=== PATIENT | female | born 1955 | race Caucasian/White ===

== ENCOUNTER 2022-04-26 09:09 | Day surgery (SDC) | payer OTHER, MEDICARE ==
[2022-04-20 15:12] LABS: SARS-CoV-2 Antigen Rapid Res Negative (Negative)
[2022-04-26] MEDS ORDERED: Ringers Lactate 1,000 ML IV ONE (09:31)
[2022-04-26] MEDS ORDERED: propofoL 200 MG/20 ML VIAL IV ONE (11:16)
[2022-04-26] MEDS ORDERED: FENTANYL CITR 100 MCG/2 ML ONE (11:17)
[2022-04-26] MEDS ORDERED: ONDANSETRON 4 MG/2 ML VIAL ONE (11:18)
[2022-04-26] MEDS ORDERED: LIDOCAINE 1% MPF 5 ML VIAL ONE (11:18)
[2022-04-26] MEDS ORDERED: MIDAZOLAM HCL 2 MG/2 ML INJ ONE (11:18)
[2022-04-26] MEDS ORDERED: LIDOCAINE 1% W/EPI 1:100,000 10 ML VIAL ONE (11:21)
[2022-04-26] MEDS ORDERED: NA CHLORIDE 0.9% 0 ML ONE (11:21)
[2022-04-26] MEDS ORDERED: LIDOCAINE 1% W/EPI 1:100,000 MDV 50 ML VIAL ONE (11:21)
[2022-04-26] MEDS ORDERED: SILVER NITRATE 1 APPL TOP ONE (11:21)
[2022-04-26] MEDS ORDERED: NA CHLORIDE 0.9% 1,000 ML ONE (11:43)
[2022-04-26] MEDS ORDERED: NS 0.9% VIAL 0 ML ONE (11:43)
[2022-04-26] MEDS ORDERED: VASOPRESSIN 20 UNIT/ML VIAL ONE (11:44)
[2022-04-26] MEDS ORDERED: dexAMETHasone 10 MG/ML VIAL ONE (12:07)
[2022-04-26] MEDS ORDERED: KETOROLAC 30 MG/ML INJ ONE (12:36)
--- NOTE | 2022-04-26 12:42 | P.BOP ---
Preoperative diagnosis: PMB, polyp Postoperative diagnosis: PMB, cervical polyp Primary procedure: cervical polyp excision, with cautery of the base, hysteroscopy d/c [employer] [place]: NONE,NONE Estimated blood loss: min Specimen: cervical polyp and EMC Findings: thin lining,post wall near Rt fundus slightly thick,cervical polyp 11oclock Anesthesia: Local Complications: None Transferred to: Recovery Room Condition: Good
[2022-04-26 13:19] VITALS: BP 146/86; TEMP 97; O2SAT 99
--- NOTE | 2022-04-26 23:48 | OP ---
Date of Procedure: 04/26/2022 Surgeon: Dana Mccall MD [employer] Officer: No assistant administrator. Preoperative Diagnoses: Postmenopausal bleeding and polyp. Postoperative Diagnoses: Postmenopausal bleeding and cervical polyps. Procedures Performed: 1.Cervical polyp excision with cautery of the base for hemostasis. 2.Hysteroscopy, D and C. Anesthesia: General with LMA. Estimated Blood Loss: Minimal. Specimens: Cervical polyp and endometrial curettings. Complications: No complications. Drains: No drains. Condition: Stable. Findings: Lining was thin, posterior wall near the right fundal slightly thick, cervical polyp at th e 11 o'clock on the ectocervical margin, which was cut and then cauterized at its base for hemostasis with a monopolar cautery on . Indications For Procedure: The patient is a 66-year-old female who presented with postmenopausal ble eding on office evaluation, found to have a large polyp at the external os of the cervix, unsure of i ts origin. Transvaginal ultrasound showed a polyp on the cervix. However, endometrium appeared to b e slightly thickened. Discussed about the need to rule out endometrial adenocarcinoma and also remov e the polyp. She was consented for polypectomy, hysteroscopy, D and C. Description Of Procedure: After she was consented in the preoperative area, taken back to the OR, pl aced in supine fashion on the operating table. General anesthesia was given. She was placed in dors al lithotomy position. Vulva, vagina, and perineum were prepped and draped in a sterile fashion. Sp eculum was placed to expose the cervix. Cervical rim was invisible initially because of the size of the polyp, but on removing the polyp towards the left, cervical rim could be visualized and this was held with 2 Allis clamps. Then, the polyp was held with ring forceps, and was twisted around that th e base of the polyp would not come out. So, Gordon scissors were taken and curved Mayos scissors were cut at the base of the polyp to detach the polyp. Once this was handed for permanent pathology, the base had to be cauterized for hemostasis with a 30-30 Bovie. Anterior lip was grasped with 2 Allis clamps. Diagnostic SlimLine hysteroscope was inserted under di rect vision through the cervical canal into the uterine cavity. The uterine cavity was retroflexed a nd after dilating to 16-English, the scope was tied in. Posterior wall slightly thickened near the ri ght cornual area, but no other intracavitary masses or lesions. The endometrium appeared to be atrop hic. Camera was removed. 0 curette was used for curettings. Scant amount of curette was retrieved. This was sent out for permanent pathology. All instruments removed. Instrument and sponge counts were correct at the end of the case and patient tolerated the procedure well. She will follow up wit h me in 1 week. SUSSY/JHON Voice ID: [id number] Report ID: [id number]
[2022-04-27] MEDS ORDERED: hydroCHLOROthiazide 25 MG TAB PO SCH (09:00)
== END 2022-04-26 13:40 | disposition home or self-care (01) ==
LOC: OR 09:09
PROVIDERS: ATTEND Obstetrics & Gynecology
PROC: 0UDB7ZX Extraction of Endometrium, Via Natural or Artificial Opening, Diagnostic (ICD-10-PCS; 2022-04-26)
PROC: 0UJD8ZZ Inspection of Uterus and Cervix, Via Natural or Artificial Opening Endoscopic (ICD-10-PCS; 2022-04-26)
PROC: 0UB97ZX Excision of Uterus, Via Natural or Artificial Opening, Diagnostic (ICD-10-PCS; principal; 2022-04-26 10:30)
DX: N95.0 Postmenopausal bleeding (principal); N84.1 Polyp of cervix uteri; I10 Essential (primary) hypertension; Z20.822 Contact with and (suspected) exposure to COVID-19
CPT/HCPCS: 36415; 87811; 88305; A4216; J1100; J2001; J2250; J2405; J2704; J3010; J7030; J7120